=== PATIENT | female | born 1955 | race Caucasian/White ===

== ENCOUNTER → 2017-04-24 | Emergency (ER) | payer BC ==
[~2017-04-24] MED LIST: Acetaminophen TAB* 325 MG PO ONE; Ibuprofen TAB* 600 MG PO ONE; Tetan/Diph/Pertus SYR(Tdap)* 0.5 ML SYR(BOOSTRIX) use SYR IM ONE
--- NOTE | 2017-04-24 15:31 | RAD ---
INDICATION: Fall intracranial injury. COMPARISON: June 13, 2013 TECHNIQUE: Noncontrast axial source images were acquired from the skull base to the vertex. FINDINGS: Ventricles/sulci: The ventricles and cisterns are normal in size and configuration for age. Brain parenchyma: There is no focal parenchymal finding, evidence of intracranial mass, or intracranial mass effect. Intracranial hemorrhage:None. Extra-axial spaces: There are no abnormal extra axial fluid collections or evidence of extra-axial mass. Calvarium: There is no calvarial fracture or other calvarial abnormality. Scalp: There is a right parietal scalp hematoma. Paranasal sinuses/mastoid: The paranasal sinuses and mastoid air cells are clear. Other: None. IMPRESSION: No acute intracranial findings. Right scalp hematoma
--- NOTE | 2017-04-24 15:31 | RAD ---
HISTORY: Injury, fall COMPARISONS: None TECHNIQUE: Multiple contiguous axial CT scans were obtained of the cervical spine without intravenous contrast, with coronal and sagittal multiplanar reformations. FINDINGS: BRAIN: The visualized brain is unremarkable CENTRAL CANAL: Evaluation of the central canal is limited on CT technique; however, there is no obvious canalicular mass or epidural hemorrhage. ALIGNMENT: There is straightening of the cervical lordosis. VERTEBRAL BODIES: There is no displaced fracture. There is multilevel anterolateral marginal osteophyte formation. JOINTS: There is uncal vertebral and facet hypertrophy. MUSCULATURE: Unremarkable INTERVERTEBRAL DISCS: There is diffuse loss of intervertebral disc height. AXIAL IMAGES: C2-C3: There is no osseous neural foraminal narrowing or central canal stenosis. C3-C4: There is bilateral uncovertebral hypertrophy with moderate bilateral neural foraminal narrowing. C4-C5: There is no osseous neural foraminal narrowing or central canal stenosis. C5-C6: There is bilateral uncovertebral atrophy. There is severe bilateral neural foraminal narrowing. There is no osseous central canal stenosis. C6-C7: There is no osseous neural foraminal narrowing or central canal stenosis. C7-T1: There is no osseous neural foraminal narrowing or central canal stenosis. SOFT TISSUES: The patient is to be status post right thyroidectomy. The prevertebral fat stripe is preserved. OTHER: None. IMPRESSION: 1. STRAIGHTENING OF THE CERVICAL LORDOSIS. 2. DEGENERATIVE DISC DISEASE AND OSTEOPOROSIS. 3. NO ACUTE OSSEOUS INJURY TO THE CERVICAL SPINE.
[2017-04-24 15:40] VITALS: BP 119/68
[2017-04-24 16:14] LABS: Hematocrit 43 % (35-47); Hemoglobin 14.5 g/dl (12.0-16.0); Mean Corpuscular HGB Conc 34 g/dl (31-36); Mean Corpuscular Hemoglobin 29 pg (27-31); Mean Corpuscular Volume 87 fL (80-97); Mean Platelet Volume 10 um3 (7.4-10.4); Red Blood Count 4.94 10^6/ul (4.0-5.4); Red Cell Distribution Width 13 % (10.5-15); White Blood Count 13.1 10^3/ul (3.5-10.8)
[2017-04-24 16:19] LABS: Albumin 4.5 g/dL (3.2-5.2); BUN/Creatinine Ratio 27.6 (8-20); Calcium 9.4 mg/dL (8.6-10.3); EGFR African American 98.8 (>60); EGFR Non-African American 76.9 (>60); Globulin 2.5 g/dL (2-4); Total Bilirubin 0.4 mg/dL (0.2-1.0)
[2017-04-24 16:28] LABS: Urine Bacteria Absent (Absent); Urine Bilirubin Negative (Negative); Urine Glucose Negative (Negative); Urine Nitrite Negative (Negative)
[2017-04-24 16:51] LABS: Potassium 3.9 mmol/L (3.5-5.0)
--- NOTE | 2017-04-24 18:35 | ED ---
Ean Cui Nilda, scribed for Freedom Garcia MD on 04/24/17 at 1636 . Adult Trauma - HPI Summary HPI Summary: This patient is a 61 [facility] [place] s/p falling down a flight of stairs (missed a step) earlier today. She hit her head in the process. Patient states she was able to ambulate after falling. Patient reports dizziness, LUE pain, bruising, small cut on head, and back pain. She denies LOC , neck pain, CP, and palpitations. - History of Current Complaint Chief Complaint: EDHeadInjury Stated Complaint: FALL/HEAD LAC Time Seen by Provider: 04/24/17 16:21 Hx Obtained From: Patient - s Mechanism of Injury: Fall Ambulatory at the Scene: Yes Loss of Consciousness: no loss of consciousness Onset/Duration: Started Hours Ago, Traumatic, Still Present Current Severity: Mild Pain Intensity: 0 Pain Scale Used: 0-10 Numeric Location: Head Associated Signs & Symptoms: Positive: Other: - dizziness, LUE pain, bruising, small cut on head, and back pain. She denies LOC, neck pain, CP, and palpitations. - Allergy/Home Medications Allergies/Adverse Reactions: Allergies Allergy/AdvReac Type Severity Reaction Status Date / Time Iodine Allergy Severe comatose Verified 03/21/12 07:56 Home Medications: Home Medications Atorvastatin* [Lipitor*] 10 mg PO QPM 04/24/17 [History Confirmed 04/24/17] Cholecalciferol TAB* [Vitamin D TAB*] 2,000 units PO QPM 04/24/17 [History Confirmed 04/24/17] Coenzyme Q10 (Ubidecarenone) [Co Q-10] 200 mg PO QPM 04/24/17 [History Confirmed 04/24/17] FLUoxetine CAP* [PROzac CAP*] 40 mg PO QPM 04/24/17 [History Confirmed 04/24/17] Levothyroxine TAB* [Synthroid TAB*] 50 mcg PO QAM 04/24/17 [History Confirmed ] Magnesium Aspartate-Potassium [Ra Potassium/Magnesium As 250-250 mg] 1 cap PO QPM 04/24/17 [History Confirmed 04/24/17] traZODone TAB* [Desyrel TAB*] 100 mg PO BEDTIME 04/24/17 [History Confirmed ] PMH/Surg Hx/FS Hx/Imm Hx Endocrine/Hematology History: Reports: Hx Thyroid Disease - thyroidectomy d/t graves disease Musculoskeletal History: Denies: Hx Rheumatoid Arthritis, Hx Osteoporosis, Hx Scoliosis Neurological History: Reports: Hx Headaches Denies: Other Neuro Impairments/Disorders - Cancer History Hx Chemotherapy: No Hx Radiation Therapy: No - Surgical History Surgery Procedure, Year, and Place: THYROIDECTOMY Infectious Disease History: Yes Infectious Disease History: Denies: Traveled Outside the [place] in Last 30 Days - Family History Known Family History: Negative: Hypertension, Diabetes - Social History Occupation: Employed Full-time - technology teacher Alcohol Use: None Substance Use Type: Reports: None Smoking Status (MU): Unknown if Ever Smoked Review of Systems Positive: Other - mechanical fall Negative: Palpitations, Chest Pain Positive: Other - back pain, LUE pain; negative neck pain Positive: Bruising, Other - cut on head Neurological: Other - dizziness, head trauma; negative LOC All Other Systems Reviewed And Are Negative: Yes Physical Exam Triage Information Reviewed: Yes Vital Signs On Initial Exam: Initial Vitals Temp Pulse Resp BP Pulse Ox 97.3 F 81 18 158/98 100 04/24/17 14:18 04/24/17 14:18 04/24/17 14:18 04/24/17 14:18 04/24/17 14:18 Vital Signs Reviewed: Yes Appearance: Positive: Well-Appearing, No Pain Distress Skin: Positive: Warm, Skin Color Reflects Adequate Perfusion Head/Face: Positive: Cephalohematoma - right side with abrasion Eyes: Positive: EOMI, DIANDRA ENT: Positive: Normal ENT inspection, Pharynx normal Neck: Positive: Supple, Nontender Respiratory/Lung Sounds: Positive: Clear to Auscultation Cardiovascular: Positive: RRR. Negative: Murmur Abdomen Description: Positive: Nontender Musculoskeletal: Positive: Strength/ROM Intact, Other - TLS spine non tender to palpate. No gross deformity, non tender extremities. Neurological: Positive: Sensory/Motor Intact, Alert, Oriented to Person Place, Time, CN Intact II-III, Normal Gait, Finger to Nose, Speech Normal Psychiatric: Positive: Normal - [place] Coma Scale Best Eye Response: 4 - Spontaneous Best Motor Response: 6 - Obeys Commands Best Verbal Response: 5 - Oriented Coma Scale Total: 15 Diagnostics - Vital Signs Vital Signs Temp Pulse Resp BP Pulse Ox 04/24/17 16:00 22 04/24/17 15:00 78 18 119/68 96 04/24/17 14:30 76 18 146/83 97 04/24/17 14:28 84 22 96 04/24/17 14:18 97.3 F 81 18 158/98 100 - Laboratory Lab Results: Lab Results 04/24/17 04/24/17 04/24/17 Range/Units 15:44 15:44 16:04 WBC 13.1 H (3.5-10.8) 10^3/ul RBC 4.94 (4.0-5.4) 10^6/ul Hgb 14.5 (12.0-16.0) g/dl Hct 43 (35-47) % MCV 87 (80-97) fL MCH 29 (27-31) pg MCHC 34 (31-36) g/dl RDW 13 (10.5-15) % Plt Count 230 (150-450) 10^3/ul MPV 10 (7.4-10.4) um3 Neut % (Auto) 84.3 H (38-83) % Lymph % (Auto) 8.7 L (25-47) % [place] % (Auto) 6.1 (1-9) % Eos % (Auto) 0.2 (0-6) % Baso % (Auto) 0.7 (0-2) % Absolute Neuts (auto) 11.0 H (1.5-7.7) 10^3/ul Absolute Lymphs (auto) 1.1 (1.0-4.8) 10^3/ul Absolute Monos (auto) 0.8 (0-0.8) 10^3/ul Absolute Eos (auto) 0 (0-0.6) 10^3/ul Absolute Basos (auto) 0.1 (0-0.2) 10^3/ul Absolute Nucleated RBC 0 10^3/ul Nucleated RBC % 0 Sodium 137 (133-145) mmol/L Potassium Pending Chloride 101 (101-111) mmol/L Carbon Dioxide 30 (22-32) mmol/L Anion Gap Pending BUN 21 (6-24) mg/dL Creatinine 0.76 (0.51-0.95) mg/dL Est GFR ( Amer) 98.8 (>60) Est GFR (Non-Af Amer) 76.9 (>60) BUN/Creatinine Ratio 27.6 H (8-20) Glucose 150 H (70-100) mg/dL Calcium 9.4 (8.6-10.3) mg/dL Total Bilirubin 0.40 (0.2-1.0) mg/dL AST Pending ALT 26 (7-52) U/L Alkaline Phosphatase 48 (34-104) U/L Total Protein 7.0 (6.4-8.9) g/dL Albumin 4.5 (3.2-5.2) g/dL Globulin 2.5 (2-4) g/dL Albumin/Globulin Ratio 1.8 (1-3) Urine Color Yellow Urine Appearance Cloudy Urine pH 6.0 (5-9) Ur Specific [place] 1.017 (1.010-1.030) Urine Protein Negative (Negative) Urine Ketones Trace H (Negative) Urine Blood Negative (Negative) Urine Nitrate Negative (Negative) Urine Bilirubin Negative (Negative) Urine Urobilinogen Negative (Negative) Ur Leukocyte Esterase Trace H (Negative) Urine WBC (Auto) 1+(6-10/hpf) H (Absent) Urine RBC (Auto) Absent (Absent) Urine Bacteria Absent (Absent) Urine Glucose Negative (Negative) Urine Ascorbic Acid * H (Negative) Result Diagrams: 04/24/17 15:44 04/24/17 15:44 Lab Statement: Any lab studies that have been ordered have been reviewed, and results considered in the medical decision making process. - CT Brain CT Interpretation Completed By: Radiologist - no acute intracranial findins. Right scalp hematoma. ED physician reviewed report and agrees. C-Spine CT Interpretation Completed By: Radiologist - 1. Straightening of the cervical lordosis. 2. degenerative disc disease and osteoporosis. 3. No acute osseous injury to the cervical spine. ED physician has reviewed this report and agrees. Re-Evaluation - Re-Evaluation First Eval Re-Evaluation Time: 17:19 Change: Improved Comment: The pataixa is walking very well, smiling and in no distress. She has no long bone pain walking. Adult Trauma Course/Dx - Course Course Of Treatment: 61 yr old female with fall down stairs. scalp hematoma and abrasions. CT Brain, per radiologist, reveals NAD. CT C-spine, per radiologist, reveals 1. Straightening of the cervical lordosis. 2. degenerative disc disease and osteoporosis. 3. No acute osseous injury to the cervical spine. ED physician has reviewed this report and agrees. Pt is stable and will be D/C. Pt is agreeable with this plan. - Diagnoses Provider Diagnoses: Hypertension, Scalp hematoma, Abrasion of arm, left, Closed head injury Discharge - Discharge Plan Condition: Good Disposition: HOME Patient Education Materials: Head Injury (ED), Abrasion (ED), Hypertension (ED) Referrals: Agustin Dove MD [Primary Care Provider] - The documentation as recorded by the Ean panda Nilda accurately reflects the service I personally performed and the decisions made by , Freedom Garcia MD.
--- NOTE | 2017-04-26 12:28 | PN ---
Progress Note - Progress Note Date of Service: 04/26/17 Note: urine culture grew Aerococcus >100,000. due to significant amount culture will place on antibiotic. Called patient and will place on amoxicillin 500mg [id number].
== END | disposition home or self-care (01) ==
LOC: ED 14:05
DX: S00.03XA Contusion of scalp, initial encounter (principal); S40.812A Abrasion of left upper arm, initial encounter; S09.90XA Unspecified injury of head, initial encounter; I10 Essential (primary) hypertension; R42 Dizziness and giddiness; M54.9 Dorsalgia, unspecified; W10.9XXA Fall (on) (from) unspecified stairs and steps, initial encounter; Y93.9 Activity, unspecified; Y92.9 Unspecified place or not applicable; Y99.9 Unspecified external cause status
CPT/HCPCS: 36415; 70450; 72125; 80053; 81003; 81015; 85025; 87077; 87086; 90471; 90715; 99283; A9270-GY